=== PATIENT | male | born 1985 | race Caucasian/White ===

== ENCOUNTER 2020-02-11 19:26 | Emergency (ER) | payer OTHER, BC ==
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
== END 2020-02-11 21:11 | disposition home or self-care (01) ==
LOC: CC.ED 19:26
DX: S43.402A Unspecified sprain of left shoulder joint, initial encounter (principal); Z88.2 Allergy status to sulfonamides; Z88.8 Allergy status to other drugs, medicaments and biological substances; V89.2XXA Person injured in unspecified motor-vehicle accident, traffic, initial encounter
CPT/HCPCS: 73030-LT; 99284-25